=== PATIENT | female | born 1990 | race Caucasian/White ===

== ENCOUNTER 2019-01-19 23:26 | Inpatient (IN) | payer MEDICAID, OTHER ==
[~2019-01-19] VITALS: Ht 152.4 cm; Wt 67.4 kg
[2019-01-19 23:28] VITALS: Ht 152.4 cm; Wt 67.4 kg
[2019-01-19] MEDS ORDERED: ACETAMINOPHEN 325 MG TAB PO STA (23:59)
[2019-01-19] MEDS ORDERED: SOD CHLORIDE 0.9% 1,000 ML IV STA (23:59)
[2019-01-20] MEDS ORDERED: ACETAMINOPHEN 325 MG TAB PO PRN ×2 (01:30→02:00)
[2019-01-20] MEDS ORDERED: ONDANSETRON 4 MG INJ IV PRN (01:30)
--- NOTE | 2019-01-20 01:31 | HP ---
Date/Time of Note Date/Time of Note DATE: 01/20/19 TIME: 01:28 OB - History Hx of Present Free Text/Dictation 28-year-old 3 para 2 at 13 weeks and 3 days of gestation with estimated date of delivery July 25, 2019 Patient presents with vaginal bleeding in the emergency department Patient recently had Nexplanon removed in September 2018 and she did not know that she was Estimated Due Date: Jul 25, 2019 : 3 Para: 2 Care: None Obstetrical Complications: None Medical Complications: None Past Family/Social History * Past Medical, Surgical, Family and Obstetric Histories are noncontributory to this admission OB Admission Exam Vital Signs Vital Signs Vital Signs Date Temp Pulse Resp B/P (MAP) Pulse Ox O2 O2 Flow FiO2 Time Delivery Rate 01/20/19 98.2 102 16 104/62 100 Room Air 00:37 (76) Physical Exam HEENT: WNL Heart: Rhythm Normal Lungs: Clear, Equal Abdomen: WNL Extremities: Normal Reflexes: Normal Last 72 hours Lab Results Blood type O+ CBC & BMP 01/19/19 23:51 Liver Function Test 01/19/19 23:51 Alanine Aminotransferase (ALT/SGPT) 33 Albumin 4.4 Alkaline Phosphatase 47 Aspartate Amino Transf (AST/SGOT) 36 Direct Bilirubin 0.00 Total Protein 7.7 Urine Results - 72 Hrs Test 01/20/19 02:23 Urine Color RED (YELLOW) Urine Clarity SLIGHTLY CLOUDY (CLEAR) Urine pH 6.0 (5.0-9.0) Urine Specific [place] 1.011 (1.003-1.030) Urine Ketones NEGATIVE mg/dL (NEGATIVE) Urine Nitrite NEGATIVE mg/dL (NEGATIVE) Urine Bilirubin NEGATIVE mg/dL (NEGATIVE) Urine Urobilinogen NEGATIVE mg/dL (NEGATIVE) Urine Leukocyte Esterase NEGATIVE Ivana/ul Urine Microscopic RBC > 182 /HPF (0-5) H Urine Microscopic WBC 0 /HPF (0-5) Urine Hemoglobin 3+ mg/dL (NEGATIVE) H Urine Glucose NEGATIVE mg/dL (NEGATIVE) Urine Total Protein 2+ mg/dl (NEGATIVE) H PROCEDURE: OB Ultrasound. CLINICAL INDICATION: Positive test. Vaginal bleeding. TECHNIQUE: Ultrasound of the pelvis was performed with transabdominal and transvaginal sonography in the axial and sagittal planes. COMPARISON: No prior study is available for comparison. FINDINGS: There is a single intrauterine gestational sac. pole is visualized. There is heart motion. heart rate is 152 beats per minute. Lastrup-rump length is 7.35 cm. Menstrual age by ultrasound dates is 13 weeks 3 days. This indicates an expected date of delivery of 07/25/2019. The ovaries are not visualized. There is possible placental abruption with a possible blood clot measuring 6.2 x 2.1 cm. There is no other pelvic mass or free fluid. IMPRESSION: 1. Single live intrauterine gestation of 13 weeks 3 days menstrual age by ultrasound dates. 2. Expected date of delivery is 07/25/2019. 3. Possible abruption with blood clot measuring 6.2 x 2.1 cm. Follow-up ad vised. RPTAT: QQ .Jayjay Aguirre MD, Date Time Electronically viewed and signed by .Jayjay Aguirre MD, on 01/20/2019 00:44 .R/ CC: CLAUDETTE URBINA PA-C [id number] OB Assessment/Plan Reason for admission: observation (Threatened ), vaginal bleeding Other plan: 3 para 2 at 13 weeks and 3 days of gestation with threatened Admit to [facility] [place] for continuos observation IV fluids Repeat labs tomorrow Repeat ultrasound tomorrow CHINA TURNER MD Jan 20, 2019 01:31
[2019-01-20] MEDS ORDERED: SOD CHLORIDE 0.9% 1,000 ML IV ONE (02:30)
[2019-01-20] MEDS: LACTATED RINGER'S 1,000 ML IV SCH ×3 (04:22→12:16)
[2019-01-20] MEDS ORDERED: SOD CHLORIDE 0.9% 500 ML IV STA (04:39)
[2019-01-20 06:17] VITALS: BP 95/59; PULSE 90; RESP 18
[2019-01-20 07:40] VITALS: BP 92/53; PULSE 97; RESP 20
[2019-01-20] MEDS ORDERED: PRENATAL VITAMIN PO SCH (09:00)
[2019-01-20] MEDS ORDERED: FERROUS SULFATE (EC) 325 MG TAB PO SCH (09:00)
[2019-01-20 11:05] VITALS: BP 105/64; PULSE 92; RESP 20
[2019-01-20 15:22] VITALS: BP 104/69; PULSE 84; RESP 20
--- NOTE | 2019-01-20 18:42 | QN ---
Documentation Comment 28 years old -0-0-2 with single intrauterine at 13 weeks and 4days with vaginal bleeding and retroplacental hemorrhage was admitted for close monitoring. She denies nausea, vomiting, shortness of breath, chest pain, headache, visual changes or LOF. She states still has minimal vaginal bleeding Physical exam is unremarkable Assessment and plan: 28 years old -0-0-2 with single intrauterine at 13 weeks and 4 days with subchorionic hemorrhage. She is currently afebrile vital sign is stable. Repeat ultrasound revealed single live intrauterine gestation. Labs, ultrasound, mild plan of care discussed in detail with patient and her . Both expressed understanding. All of their questions answered. She discharged home in stable condition. I strongly recommend follow-up with primary OB in 1 or 2 days or come back to emergency department if experiencing severe vaginal bleeding. CARLOS PINO Jan 20, 2019 18:42
--- NOTE | 2019-01-20 18:44 | DS ---
Date/Time of Note Date/Time of Note DATE: 01/20/19 TIME: 18:42 Discharge Summary Admission/Discharge Info Admit Date/Time Jan 20, 2019 at 04:55 Discharge Date/Time Jan 20, 2019 at 18:15 Discharge Diagnosis Intrauterine at 13 weeks and 4 days with retroplacental hemorrhage Patient Condition: Stable Hx of Present Illness 28 years old with vaginal bleeding Hospital Course 28 years old -0-0-2 with single intrauterine at 13 weeks and 4 days with subchorionic hemorrhage. She is currently afebrile vital sign is stable. Repeat ultrasound revealed single live intrauterine gestation. Labs, ultrasound, mild plan of care discussed in detail with patient and her . Both expressed understanding. All of their questions answered. She discharged home in stable condition. I strongly recommend follow-up with primary OB in 1 or 2 days or come back to emergency department if experiencing severe vaginal bleeding. Home Meds No Active Prescriptions or Reported Meds Follow-up Plan 2 days with her primary OB Primary Care Provider Care Physician No Primary Time spent on discharge: < 30 minutes Pending Labs Laboratory Tests Test 01/19/19 23:51 01/20/19 02:23 01/20/19 08:28 White Blood Count 6.2 5.3 10^3/ul (4.8-10.8) 10^3/ul (4.8-10.8) Red Blood Count 3.53 3.01 10^6/ul (4.20-5.40) 10^6/ul (4.20-5.40 ) Hemoglobin 10.5 9.1 g/dl (12.0-16.0) g/dl (12.0-16.0) Hematocrit 30.7 % (37.0-47.0) 26.7 % (37.0-47.0) Mean Corpuscular 87.0 88.7 Volume fl (82.0-101.0) fl (82.0-101.0) Mean Corpuscular 29.7 pg (29.0-33.0) 30.2 Hemoglobin pg (29.0-33.0) Mean Corpuscular 34.2 34.1 Hemoglobin Concent g/dl (32.0-37.0) g/dl (32.0-37.0) Red Cell 13.9 % (11.5-14.5) 14.1 % (11.5-14.5) Distribution Width Platelet Count 219 181 10^3/UL (140-415) 10^3/UL (140-415) Mean Platelet 10.6 fl (7.4-10.4) 10.4 fl (7.4-10.4) Volume Immature 0.300 0.400 Granulocytes % % (0.001-0.429) % (0.001-0.429) Neutrophils % 54.7 % (39.0-77.0) 65.5 % (39.0-77.0) Lymphocytes % 33.3 % (15.0-51.0) 23.8 % (15.0-51.0) Monocytes % 9.3 % (0.0-11.0) 8.4 % (0.0-11.0) Eosinophils % 1.6 % (0.0-7.0) 1.1 % (0.0-7.0) Basophils % 0.8 % (0.0-2.0) 0.8 % (0.0-2.0) Nucleated Red Blood 0.0 0.0 Cells % /100WBC (0.0-0.0) /100WBC (0.0-0.0) Immature 0.020 0.020 Granulocytes # 10^3/ul (0.0-0.031) 10^3/ul (0.0-0.031 ) Neutrophils # 3.4 3.4 10^3/ul (1.6-7.5) 10^3/ul (1.6-7.5) Lymphocytes # 2.1 1.3 10^3/ul (0.8-2.9) 10^3/ul (0.8-2.9) Monocytes # 0.6 0.4 10^3/ul (0.3-0.9) 10^3/ul (0.3-0.9) Eosinophils # 0.1 0.1 10^3/ul (0.0-0.5) 10^3/ul (0.0-0.5) Basophils # 0.1 0.0 10^3/ul (0.0-0.1) 10^3/ul (0.0-0.1) Nucleated Red Blood 0.0 0.0 Cells # 10^3/ul (0.0-0.0) 10^3/ul (0.0-0.0) Sodium Level 142 mmol/L (135-144) Potassium Level 3.7 mmol/L (3.5-5.1) Chloride Level 110 mmol/L (97-110) Carbon Dioxide 19 mmol/L (21-31) Level Anion Gap 13 (5-13) Blood Urea Nitrogen 6 mg/dl (7-20) Creatinine 0.50 mg/dl (0.44-1.00) Est Glomerular > 60 mL/min (>60) Filtrat Rate mL/min Glucose Level 98 mg/dl (70-220) Calcium Level 9.0 mg/dl (8.4-10.2) Total Bilirubin 0.3 mg/dl (0.2-1.3) Direct Bilirubin 0.00 mg/dl (0.00-0.20) Indirect Bilirubin 0.3 mg/dl (0-1.1) Aspartate Amino 36 IU/L (15-46) Transf (AST/SGOT) Alanine 33 IU/L (13-69) Aminotransferase (A LT/SGPT) Alkaline 47 IU/L (42-121) Phosphatase Total Protein 7.7 g/dl (6.1-8.1) Albumin 4.4 g/dl (3.3-4.9) Globulin 3.30 g/dl (1.3-3.2) Albumin/Globulin 1.33 Ratio Beta HCG, 012207.0 mIU/ml Quantitative Urine Color RED (YELLOW) Urine Clarity SLIGHTLY CLOUDY (CLEAR) Urine pH 6.0 (5.0-9.0) Urine Specific 1.011 (1.003-1.030 [place] ) Urine Ketones NEGATIVE mg/dL (NEGATIVE) Urine Nitrite NEGATIVE mg/dL (NEGATIVE) Urine Bilirubin NEGATIVE mg/dL (NEGATIVE) Urine Urobilinogen NEGATIVE mg/dL (NEGATIVE) Urine Leukocyte NEGATIVE Ivana/ul Esterase Urine Microscopic > 182 /HPF (0-5) RBC Urine Microscopic 0 /HPF (0-5) WBC Urine Hemoglobin 3+ mg/dL (NEGATIVE) Urine Glucose NEGATIVE mg/dL (NEGATIVE) Urine Total 2+ Protein mg/dl (NEGATIVE) CARLOS PINO Jan 20, 2019 18:44
== END 2019-01-20 18:15 | disposition home or self-care (01) | DRG 833 ==
LOC: FTE 23:26 → CANRESERV 01-20 01:50 → 6WM 01-20 04:55 → EDBEDREQ 01-20 04:57 → EDBEDREQSVC 01-20 04:57
PROVIDERS: ADMIT Obstetrics & Gynecology Gynecology; ATTEND Obstetrics & Gynecology Gynecology
DX: O46.8X1 Other antepartum hemorrhage, first trimester (principal); Z3A.13 13 weeks gestation of pregnancy
CPT/HCPCS: 76801; 80053; 81001; 84702; 85025; 86850; 86900; 86901; 93005; J7030; J7040; J7120